=== PATIENT | male | born 1950 | race Caucasian/White ===

== ENCOUNTER 2016-09-16 14:35 | Emergency (ER) | payer MEDICARE ==
--- NOTE | 2016-09-16 15:15 | ED Physician Documentation ---
Sore Throat/Dental Pain - HISTORIAN Historian: patient, spouse - HPI Stated Complaint: Dental Pain Chief Complaint: Dental Pain Onset: days ago (7) Context: Dental Caries Further Comments: yes (66 year old male patient presents with complaints of right lower tooth pain, took tylenol and ibuprofen with no improvement. Concerned he may have an abscess.) - ROS CONST: no problems CVS/RESP: none GI/: denies: nausea, vomiting MS/SKIN/LYMPH: denies: muscle aches, rash, leg swelling, ankle swelling NEURO/PSYCH: none - PAST HX Past History: gum disease Other History: other (HTN, HLD, Prostate cancer undergoing radiation) Allergies/Adverse Reactions: Allergies Allergy/AdvReac Type Severity Reaction Status Date / Time No Known Allergies Allergy Unverified 09/16/16 14:47 Home Medications: Ambulatory Orders Medication Instructions Recorded Atenolol [Tenormin] 25 mg PO DAILY 09/16/16 Ketorolac Tromethamine [Toradol] 10 mg PO TID #15 tablet 09/16/16 Lisinopril [Zestril] 10 mg PO DAILY 09/16/16 Simvastatin [Zocor] 10 mg PO DAILY 09/16/16 - SOCIAL HX Smoking History: non-smoker - FAMILY HX Family History: No - VITAL SIGNS Vital Signs: Vital Signs Temp Pulse Resp BP Pulse Ox 97.1 F L 72 18 157/103 97 09/16/16 14:35 09/16/16 14:35 09/16/16 14:35 09/16/16 14:35 09/16/16 14:35 - REVIEWED ASSESSMENTS Nursing Assessment Reviewed: Yes Vitals Reviewed: Yes Dental Pain Physical Exam - EXAM General Appearance: mild distress Head/Neck: head nml inspection, trachea midline, no lymphadenopathy, thyroid nml , neck nml inspection Eyes: eyes nml inspection, PERRL Mouth/Throat: lips nml, pharynx nml, voice nml, no drooling, no air way problems , no thrush, membranes nml, widespread dental decay (#34 with cavity) Skin: normal color, warm/dry, NR, INT, PAL, DR Neuro/Psych: No: weakness Discharge Clincal Impression: Dental caries Prescriptions: Ketorolac Tromethamine [Toradol] 10 mg PO TID #15 tablet Referrals: Feldker,Irlanda, FERMENTER OPERATOR [Primary Care Provider] - 2 Days Additional Instructions: production crew supervisor your prescription at [facility] Try over the counter paste for cavities Do not take ibuprofen, aleve or naproxen while you are taking the toradol prescription. See your dentist as soon as possible. Home Medications: Ambulatory Orders Atenolol [Tenormin] 25 mg PO DAILY 09/16/16 Ketorolac Tromethamine [Toradol] 10 mg PO TID #15 tablet 09/16/16 Lisinopril [Zestril] 10 mg PO DAILY 09/16/16 Simvastatin [Zocor] 10 mg PO DAILY 09/16/16 Condition: Stable Disposition: HOME, SELF-CARE Decision to Admit: NO Decision Time: 15:05
[2016-09-16] MEDS ORDERED: NALBUPHINE HCL 10 MG/1 ML IM ONE (15:20)
[2016-09-16] MEDS ORDERED: KETOROLAC TROMETHAMINE 60 MG/2 ML VIAL ONE (15:20)
[2016-09-16 15:38] VITALS: BP 148/88
[2016-09-16] MEDS ORDERED: KETOROLAC TROMETHAMINE 60 MG/2 ML VIAL IM SCH (18:00)
== END 2016-09-16 15:36 | disposition home or self-care (01) ==
LOC: ED 14:35
DX: K02.9 Dental caries, unspecified (principal)
CPT/HCPCS: J1885; J2300; 96372; 99283